=== PATIENT | male | born 1980 | race Caucasian/White ===

== ENCOUNTER 2019-09-10 14:33 | Emergency (ER) | payer SELFPAY ==
[2019-09-10 16:39] LABS: ABSOLUTE EOSINOPHILS # (AUTO) 0.1 10^3/uL (0.0-0.6); ABSOLUTE LYMPHOCYTES (AUTO) 1.2 10^3/uL (0.5-4.7); ABSOLUTE MONOCYTES (AUTO) 0.8 10^3/uL (0.1-1.4); ABSOLUTE NEUT (AUTO) 3.1 10^3/uL (1.7-8.2); BASOPHILS % (AUTO) 0.2 % (0-2); EOSINOPHILS % (AUTO) 1.9 % (0-6); HEMATOCRIT 41.1 % (37.9-51.0); HEMOGLOBIN 14.1 g/dL (13.5-17.0); LYMPHOCYTES % (AUTO) 22.6 % (13-45); MEAN CORPUSCULAR HEMOGLOBIN 27.5 pg (27.0-33.4); MEAN CORPUSCULAR HGB CONC 34.4 g/dL (32.0-36.0); MEAN CORPUSCULAR VOLUME 80 fl (80-97); MONOCYTES % (AUTO) 16.1 % (3-13); PLATELET COUNT 161 10^3/uL (150-450); RED BLOOD COUNT 5.14 10^6/uL (4.35-5.55); RED CELL DISTRIBUTION WIDTH 12.4 % (11.5-14.0); SEGMENTED NEUTROPHILS % (AUTO) 59.2 % (42-78); TOTAL CELLS COUNTED % (AUTO) 100 %; WHITE BLOOD COUNT 5.2 10^3/uL (4.0-10.5)
[2019-09-10 16:57] LABS: ALBUMIN 3.7 g/dL (3.5-5.0); ALKALINE PHOSPHATASE 73 U/L (38-126); ANION GAP 9 (5-19); ASPARTATE AMINO TRANSFERASE 278 U/L (17-59); BILIRUBIN,DIRECT 0.2 mg/dL (0.0-0.4); BILIRUBIN,TOTAL 0.8 mg/dL (0.2-1.3); BLOOD UREA NITROGEN 17 mg/dL (7-20); CALCIUM 11.4 mg/dL (8.4-10.2); CARBON DIOXIDE 31 mmol/L (22-30); CHLORIDE 98 mmol/L (98-107); GLUCOSE 102 mg/dL (75-110); POTASSIUM 4.3 mmol/L (3.6-5.0); TOTAL PROTEIN 6.6 g/dL (6.3-8.2)
[2019-09-10 17:27] LABS: FREE T3 > 22.80 pg/mL (2.77-5.27); FREE T4 (FREE THYROXINE) > 6.99 ng/dL (0.78-2.19); THYROID STIMULATING HORMONE < 0.01 uIU/mL (0.47-4.68)
--- NOTE | 2019-09-10 19:20 | ER Document Report ---
ED Medical Screen (RME) - General Chief Complaint: Abnormal Lab Results Stated Complaint: ABNORMAL LABS Time Seen by Provider: 09/10/19 15:53 Primary Care Provider: TJ QUINONES PA-C [Primary Care Provider] - Follow up as needed Mode of Arrival: Ambulatory Information source: Patient Notes: 38-year-old male patient presenting to the emergency department with report of abnormal labs. Patient reports he had some abnormal labs drawn his primary care provider's office about 2 months ago, she subsequently sent him for an ultrasound of his thyroid and had him set up today for consultation with surgery for a thyroid biopsy. Patient reports he went and saw Dr. Rogelio Bull in his office and upon Dr. Bull reviewing all of his labs and imaging Dr. Nia guidry felt that it was more appropriate for the patient to come to the emergency department for more immediate work-up. Patient reports he has been having palpitations and feeling excessively tired lately and has had some mental confusion and fogginess. Exam: Patient alert, oriented, answering all questions appropriately. Tachycardic in triage. I have greeted and performed a rapid initial assessment of this patient. A comprehensive ED assessment and evaluation of the patient, analysis of test results and completion of the medical decision making process will be conducted by additional ED providers. I have specifically instructed the patient or family members with the patient to immediately return to any nursing staff should anything change in the patient's condition or with their chief complaint. F - Related Data Allergies/Adverse Reactions: No Known Allergies Allergy (Unverified 07/28/12 10:17) Past Medical History - Social History Frequency of alcohol use: None Drug Abuse: None - Immunizations Hx Diphtheria, Pertussis, Tetanus Vaccination: Yes Physical Exam - Vital signs Vitals: Temp Pulse Resp BP Pulse Ox 97.3 F 139 H 20 143/72 H 95 09/10/19 15:06 09/10/19 15:06 09/10/19 15:06 09/10/19 15:06 09/10/19 15:06 Course - Vital Signs Vital signs: Temp Pulse Resp BP Pulse Ox 98.3 F 139 H 21 H 145/84 H 99 09/10/19 19:14 09/10/19 15:06 09/10/19 19:01 09/10/19 19:00 09/10/19 19:01 - Laboratory Result Diagrams: 09/10/19 16:17 09/10/19 16:17 Laboratory results interpreted by me: 09/10/19 09/10/19 09/10/19 16:17 16:17 16:17 [place] % (Auto) 16.1 H Carbon Dioxide 31 H Creatinine 0.37 L Calcium 11.4 H Magnesium 1.4 L AST 278 H TSH < 0.01 L Free T4 > 6.99 H Free T3 pg/mL > 22.80 H Doctor's Discharge - Discharge Referrals: TJ QUINONES, PAJovitaC [Primary Care Provider] - Follow up as needed
[2019-09-10] MEDS ORDERED: METHIMAZOLE 5 MG TABLET PO ONE (19:29)
[2019-09-10] MEDS ORDERED: NORMAL SALINE 1000 ML 1,000 ML IV ONE (19:30)
[2019-09-10] MEDS ORDERED: PROPRANOLOL HCL INJ/PF 1 MG/1 ML SDV IV ONE (19:30)
--- NOTE | 2019-09-10 21:23 | ER Document Report ---
ED General - General Chief Complaint: Abnormal Lab Results Stated Complaint: ABNORMAL LABS Time Seen by Provider: 09/10/19 15:53 Primary Care Provider: TJ QUINONES PA-C [Primary Care Provider] - Follow up as needed Mode of Arrival: Ambulatory Notes: 38-year-old male sent in by Dr. Bull's office due to hyperthyroidism. Patient states he was diagnosed with hyperthyroidism in the beginning of June by [facility]. States that he has lost approximately 100 pounds over the past 3 to 4 months, has felt like his heart is racing, has been sweating more than usual, has felt very anxious and on edge. States that he had an ultrasound performed that showed nodules and masses and he was sent to the surgeon's office to have it biopsied. When he was seen by the surgeon the surgeon tried to contact an weave defect charting clerk but was unable to so he sent him to the emergency department for further management of his symptomatic hyperthyroidism. Patient denies any difficulty breathing, complains of enlarged thyroid, states that he only occasionally has difficulty swallowing. Never has any trouble swallowing his saliva. - Related Data Allergies/Adverse Reactions: No Known Allergies Allergy (Unverified 07/28/12 10:17) Past Medical History - General Information source: Patient - Social History Smoking Status: Former Smoker Frequency of alcohol use: Rare Drug Abuse: None Family History: Reviewed & Not Pertinent Patient has suicidal ideation: No Patient has homicidal ideation: No - Immunizations Hx Diphtheria, Pertussis, Tetanus Vaccination: Yes Review of Systems - Review of Systems Constitutional: See HPI, Diaphoresis, Weight loss. denies: Chills EENT: No symptoms reported Cardiovascular: See HPI, Palpitations, Heart racing Gastrointestinal: No symptoms reported Neurological/Psychological: See HPI, Anxiety -: Yes All other systems reviewed and negative Physical Exam - Vital signs Vitals: Temp Pulse Resp BP Pulse Ox 97.3 F 139 H 20 143/72 H 95 09/10/19 15:06 09/10/19 15:06 09/10/19 15:06 09/10/19 15:06 09/10/19 15:06 Interpretation: Hypertensive, Tachycardic - Notes Notes: GENERAL: Alert, anxious, somewhat on edge. HEAD: Normocephalic, atraumatic EYES: Pupils equal, round and reactive to light, extraocular movements intact. Exophthalmos ENT: Oral mucosa moist, tongue midline. NECK: Full range of motion, supple, trachea midline. LUNGS: Clear to auscultation bilaterally, no wheezes, rales or rhonchi, no respiratory distress. HEART: Tachycardic rate and rhythm, no murmurs, gallops, rubs. ABDOMEN: Soft, nontender, nondistended, bowel sounds present in all 4 quadrants. EXTREMITIES: Moves all 4 extremities spontaneously, no edema, radial and dorsalis pedis pulses 2/4 bilaterally. No cyanosis. NEUROLOGICAL: Alert and oriented x3, normal speech, biceps and patellar DTRs 3+ bilaterally. PSYCH: Anxious. SKIN: Warm, diaphoretic, skin is somewhat loose consistent with rapid weight loss. Course - Re-evaluation Re-evalutation: 09/10/19 21:20 CBC unremarkable, CMP shows elevated calcium at 11.4, low magnesium at 1.4, AST elevated at 278, TSH undetectably low, free T3 and T4 are both higher than our upper limit that can be detected. Patient is markedly hyperthyroid but is not not thyroid storm. He is not febrile, he does not have any altered mental status. He is not vomiting. Patient will be started on IV fluids, was started on propranolol and methimazole here. Discussed with Dr. Cat the weave defect charting clerk at [facility] who recommended propranolol 60 mg a day and the extended release version as well as methimazole 10 mg 3 times a day to be stopped if he develops a rash. He has offered to have the patient follow-up with his office as an outpatient. Patient was provided with the number and the location. Patient will be discharged home. He is quite happy with this plan and is feeling much better now that his heart rate is in the very low 100s. - Vital Signs Vital signs: Temp Pulse Resp BP Pulse Ox 98.3 F 139 H 20 147/68 H 99 09/10/19 19:14 09/10/19 15:06 09/10/19 21:01 09/10/19 21:00 09/10/19 21:01 - Laboratory Result Diagrams: 09/10/19 16:17 09/10/19 16:17 Laboratory results interpreted by me: 09/10/19 09/10/19 09/10/19 16:17 16:17 16:17 [place] % (Auto) 16.1 H Carbon Dioxide 31 H Creatinine 0.37 L Calcium 11.4 H Magnesium 1.4 L AST 278 H TSH < 0.01 L Free T4 > 6.99 H Free T3 pg/mL > 22.80 H Discharge - Discharge Clinical Impression: Hyperthyroidism Condition: Stable Disposition: HOME, SELF-CARE Additional Instructions: I have prescribed you medications to help control your symptoms and decrease your thyroid function. Please take the propranolol extended release 60 mg once a day. Please take the methimazole 10 mg 3 times a day. If you develop a rash please stop the methimazole. Please call Dr. Cat's office at [facility] on [facility] in [place] at [phone] to arrange a follow-up appointment. Please make this phone call tomorrow and arrange a follow-up appointment for sometime in the next month. Prescriptions: Methimazole 10 mg PO TID #90 tablet Propranolol HCl [Propranolol HCl ER] 60 mg PO DAILY #30 cap.sa.24h Referrals: TJ QUINONES PAJovitaC [Primary Care Provider] - Follow up as needed ELIANA SILVERMAN MD [NO LOCAL MD] - Follow up as needed (Follow-up in the next 1-2 weeks. Their office has moved, it is now on [facility].)
[2019-09-10] MEDS ORDERED: PROPRANOLOL HCL 20 MG TABLET PO ONE (21:24)
[2019-09-10 21:54] VITALS: BP 126/77
== END 2019-09-10 21:58 | disposition home or self-care (01) ==
LOC: ER 14:33
DX: E05.90 Thyrotoxicosis, unspecified without thyrotoxic crisis or storm (principal); H05.20 Unspecified exophthalmos; R74.0 Nonspecific elevation of levels of transaminase and lactic acid dehydrogenase [LDH]; R63.4 Abnormal weight loss; R79.89 Other specified abnormal findings of blood chemistry; F41.9 Anxiety disorder, unspecified; R61 Generalized hyperhidrosis; R00.2 Palpitations; R00.0 Tachycardia, unspecified; Z87.891 Personal history of nicotine dependence
CPT/HCPCS: 99283; 96361; 96374; 36415; 84439; 83735; 84443; 85025; 80053; 84481; J1800; J3490; J7030